=== PATIENT | female | born 1990 | race Caucasian/White ===

== ENCOUNTER 2019-03-03 11:04 | Emergency (ER) | payer OTHER ==
[~2019-03-03] VITALS: Ht 165.1 cm; Wt 86.2 kg
[~2019-03-03 11:04] MED LIST: AMOX500C25 PO
[2019-03-03 11:09] VITALS: BP 112/55
[2019-03-03] MEDS ORDERED: ACETAMINOPHEN EXTRA STRENGTH 500 MG TAB PO ONE (11:15)
[2019-03-03] MEDS ORDERED: ACETAMINOPHEN EXTRA STRENGTH 500 MG TAB ONE ×2 (11:28→11:30)
--- NOTE | 2019-03-03 11:57 | NUR ---
Pt taken to bed 3.
--- NOTE | 2019-03-03 12:15 | NUR ---
PT PRESENTS TO ED WITH C/O BODY ACHES W/ CHILLS X5 DAYS. DENIES N/V/D, OR COUGH.
--- NOTE | 2019-03-03 12:39 | NUR ---
ORAL TEMP 99.4 AT THIS TIME. PT STATES PAIN IS 7/10 AT THIS TIME.
[2019-03-03] MEDS ORDERED: KETOROLAC 60 MG/2 ML VIAL IM ONE (13:00)
[2019-03-03] MEDS ORDERED: cefTRIAXone 1,000 MG in LIDOCAINE 1% ***ER ONLY *** 2.1 ML IM ONE (13:00)
[2019-03-03 13:11] LABS: APPEARANCE,URINE SL CLOUDY (CLEAR); BILIRUBIN,URINE NEGATIVE (NEGATIVE); BLOOD, URINE TRACE-I (NEGATIVE); COLOR,URINE YELLOW (YELLOW); LEUKOCYTE ESTERASE ,URINE 2+ (NEGATIVE); NITRITE, URINE NEGATIVE (NEGATIVE); UGLUCOSE NEGATIVE (NEGATIVE)
[2019-03-03] MEDS ORDERED: cefTRIAXone 1,000 MG VIAL ONE (13:17)
[2019-03-03] MEDS ORDERED: LIDOCAINE MPF 1% - 5 mL VIAL 5 ML ONE (13:18)
[2019-03-03 13:33] LABS: BARBITURATE, URINE NEG. ng/ml (NEG <=200); BENZODIAZEPINE, URINE NEG. ng/mL (NEG <=200); CANNABINOID, URINE NEG. ng/mL (NEG <=50); COCAINE, URINE NEG. ng/mL (NEG <=300); OPIATE, URINE NEG. ng/mL (NEG <=2000); PHENCYCLIDINE SCREEN,URINE NEG. ng/mL (NEG <=25)
[2019-03-03 13:36] VITALS: BP 115/62
--- NOTE | 2019-03-03 13:36 | NUR ---
Patient discharged with v/s stable. Written and verbal after care instructions given and explained. Patient alert, oriented and verbalized understanding of instructions. Ambulatory with steady gait. All questions addressed prior to discharge. ID band removed. Patient advised to follow up with PMD. Rx of LEVAQUIN 250MG AND FIORICET [id number] given. Patient educated on indication of medication including possible reaction and side effects. Opportunity to ask questions provided and answered.
[2019-03-03 13:37] LABS: RBC,URINE NONE SEEN /HPF (0-5); WBC,URINE 60-80 /HPF (0-5)
== END 2019-03-03 13:36 | disposition home or self-care (01) ==
LOC: MED 11:04
DX: J03.90 Acute tonsillitis, unspecified (principal); N39.0 Urinary tract infection, site not specified; Z79.2 Long term (current) use of antibiotics; Z86.39 Personal history of other endocrine, nutritional and metabolic disease
CPT/HCPCS: 80305; 81001; 81025; 87086; 87186; 96372; 99283; J0696; J1885; J2001

== ENCOUNTER 2019-10-21 08:03 | Emergency (ER) | payer OTHER ==
[~2019-10-21] VITALS: Ht 165.1 cm; Wt 86.7 kg
[2019-10-21 08:13] VITALS: BP 103/41
[2019-10-21] MEDS ORDERED: NACL 0.9% 1,000 ML IV ONE (08:25)
[2019-10-21] MEDS ORDERED: KETOROLAC 30 MG/ML VIAL IVP ONE (08:25)
--- NOTE | 2019-10-21 08:30 | NUR ---
PT AMBULATED TO BATHROOM FOR URINE SAMPLE, STEADY GAIT.
--- NOTE | 2019-10-21 08:58 | NUR ---
Dr. Pat is evaluating the patient at bedside.
--- NOTE | 2019-10-21 09:10 | NUR ---
29 Y/F PRESENTS TO ED FOR LOW BACK PAIN X 2 DAY. PT REPORTS 8/10 THROBBING PAIN AND BODY ACHE. PT ALSO REPORTS FEVER SINCE YESTERDAY, ALTHOUGH DID NOT HAVE THERMOMETER TO MEASURE TEMP. PT TAKING MOTRIN AT HOME FOR FEVER AND PAIN. PT ALSO REPORTS DRY THROAT, PRODUCTIVE COUGH, AND SOB. LAST WEEK PT NOTICED BLOOD IN URINE ONLY X 1 DAY. PT DENIES BURNING OR FREQ WHILE URINATING. A&O 4, DENIES N/V/D. LUNGS CLEAR, RR EVEN AND UNLABORED. HX- SHAHNAZ RX- MOTRIN NKDA
--- NOTE | 2019-10-21 09:34 | NUR ---
NADR, PT REPORTS DECREASED PAIN 4/10
--- NOTE | 2019-10-21 09:44 | NUR ---
Patient discharged with v/s stable. Written and verbal after care instructions given and explained. Patient alert, oriented and verbalized understanding of instructions. Ambulatory with steady gait. All questions addressed prior to discharge. ID band removed. Patient advised to follow up with PMD. Rx of MOTRIN AND PREDNISONE given. Patient educated on indication of medication including possible reaction and side effects. Opportunity to ask questions provided and answered.
[2019-10-21 09:46] VITALS: BP 118/63
== END 2019-10-21 09:44 | disposition home or self-care (01) ==
LOC: MED 08:03
DX: R05 Cough (principal); R50.9 Fever, unspecified; M79.10 Myalgia, unspecified site
CPT/HCPCS: 81002; 96374; 99283; J1885; J7030

== ENCOUNTER 2019-10-27 12:29 | Emergency (ER) | payer OTHER ==
[~2019-10-27] VITALS: Ht 165.1 cm; Wt 86.6 kg
[2019-10-27 12:52] VITALS: BP 120/65
--- NOTE | 2019-10-27 12:52 | NUR ---
PT. ADMITTED TO BED 8
--- NOTE | 2019-10-27 13:05 | NUR ---
29 Y/O FEMALE C/O COUGH, HEADACHE, AND RIB PAIN PROVOKED BY COUGH X 3 DAYS. PT STATES SHE WAS SEEN 2 DAYS AGO AND DIAGNOSED WITH INFLUENZA AND UPPER RESPIRATORY INFECTION. 8/10 ACHING PAIN TO HEAD. RR EVEN AND UNLABORED, NO ACCESSORY MUSCLE USE. DENIES FEVER/N/V/D. AFEBRILE AT THIS TIME. MOIST, PRODUCTIVE COUGH NOTED. VSS MEDHX: DENIES ALLERGIES: NKA
--- NOTE | 2019-10-27 13:30 | NUR ---
REYES AT BEDSIDE EXAMINING PT
[2019-10-27] MEDS: ALBUTEROL 0.083% 2.5 MG/3 ML NEBU INH ONE (14:01)
--- NOTE | 2019-10-27 14:27 | NUR ---
PT STATES NO CHANGE IN EASE OF BREATHING. RR EVEN AND UNLABORED. STILL C/O COUGH. REYES MADE AWARE
[2019-10-27 14:34] VITALS: BP 118/72
--- NOTE | 2019-10-27 14:35 | NUR ---
Patient discharged with v/s stable. Written and verbal after care instructions given and explained. Patient alert, oriented and verbalized understanding of instructions. Ambulatory with steady gait. All questions addressed prior to discharge. ID band removed. Patient advised to follow up with PMD. Rx of MEDROL given. Patient educated on indication of medication including possible reaction and side effects. Opportunity to ask questions provided and answered.
== END 2019-10-27 13:30 | disposition home or self-care (01) ==
LOC: MED 12:29
DX: J20.9 Acute bronchitis, unspecified (principal); E06.3 Autoimmune thyroiditis; Z79.899 Other long term (current) drug therapy
CPT/HCPCS: 71045; 94640; 99283; J7613; Q0092

== ENCOUNTER 2020-03-08 01:15 | Observation (INO) | payer OTHER ==
[~2020-03-08] VITALS: Ht 165.1 cm; Wt 92.1 kg
[2020-03-08] MEDS ORDERED: ONDANSETRON 4 MG/2 ML VIAL IVP PRN (01:45)
[2020-03-08] MEDS ORDERED: PREN-543 PO (01:50)
[2020-03-08] MEDS: LACTATED RINGERS 1,000 ML IV SCH ×2 (01:52→05:39)
[2020-03-08] MEDS ORDERED: ONDANSETRON 4 MG/2 ML VIAL ONE (02:00)
[2020-03-08 02:07] LABS: BASOPHILS # (AUTO) 0.1 K/uL (0.00-0.22); BASOPHILS % (AUTO) 0.5 % (0.0-2.0); EOSINOPHILS % (AUTO) 0.4 % (0.0-4.0); HEMATOCRIT 32.9 % (36-48); HEMOGLOBIN 10.9 g/dL (12.0-16.0); LYMPHOCYTES # (AUTO) 1.6 K/uL (2.5-16.5); LYMPHOCYTES % (AUTO) 15.1 % (20.5-51.1); MEAN CORPUSCULAR HEMOGLOBIN 31 pg (27-31); MEAN CORPUSCULAR HGB CONC 33 g/dL (33-37); MEAN CORPUSCULAR VOLUME 92.6 fL (80-94); MONOCYTES # (AUTO) 0.6 K/uL (0.8-1.0); MONOCYTES % (AUTO) 5.1 % (1.7-9.3); NEUTROPHILS # (AUTO) 8.6 K/uL (1.8-7.7); NEUTROPHILS % (AUTO) 78.9 % (42.2-75.2); PLATELET COUNT (AUTO) 181 K/uL (140-450); RED BLOOD CELL COUNT(AUTO) 3.56 MIL/uL (4.20-5.40); RED CELL DISTRIBUTION WIDTH 13.8 % (11.6-13.7); WHITE BLOOD COUNT (AUTO) 10.9 K/uL (4.8-10.8)
[2020-03-08 02:08] LABS: APPEARANCE,URINE CLOUDY (CLEAR); BILIRUBIN,URINE NEGATIVE (NEGATIVE); BLOOD, URINE NEGATIVE (NEGATIVE); COLOR,URINE YELLOW (YELLOW); LEUKOCYTE ESTERASE ,URINE 1+ (NEGATIVE); NITRITE, URINE NEGATIVE (NEGATIVE); UGLUCOSE NEGATIVE (NEGATIVE)
[2020-03-08 02:14] VITALS: BP 111/55
[2020-03-08 02:19] LABS: ALBUMIN 2.6 g/dL (3.4-5.0); ANION GAP 13.9 (8-16); CARBON DIOXIDE 24.6 mmol/L (21-32); CREATININE 0.7 mg/dL (0.6-1.3); POTASSIUM 3.5 mmol/L (3.5-5.1); TOTAL BILIRUBIN 0.2 mg/dL (0.0-1.0)
[2020-03-08 02:26] LABS: RBC,URINE 0-5 /HPF (0-5); WBC,URINE 0-5 /HPF (0-5)
[2020-03-08 02:27] LABS: URINE AMORPHOUS URATE 4+ /HPF (None Seen)
[2020-03-08] MEDS ORDERED: NACL 0.9% 1,000 ML IV SCH (07:00)
[2020-03-08] MEDS ORDERED: cefTRIAXone 1,000 MG VIAL ONE (07:05)
[2020-03-08] MEDS ORDERED: ACETAMINOPHEN EXTRA STRENGTH 500 MG TAB PO PRN (07:45)
--- NOTE | 2020-03-08 07:48 | NUR ---
PATIENT HAS BEEN SCREENED AND CATEGORIZED LOW NUTRITION RISK. PATIENT WILL BE SEEN WITHIN 7 DAYS OF ADMISSION. 03/14/[address]
[2020-03-08] MEDS ORDERED: ACETAMINOPHEN EXTRA STRENGTH 500 MG TAB ONE (07:49)
== END 2020-03-08 09:00 | disposition home or self-care (01) ==
LOC: MLD 01:15
PROVIDERS: ADMIT Obstetrics & Gynecology; ATTEND Obstetrics & Gynecology
DX: O62.9 Abnormality of forces of labor, unspecified (principal); O21.2 Late vomiting of pregnancy; O26.892 Other specified pregnancy related conditions, second trimester; R51 Headache; Z91.048 Other nonmedicinal substance allergy status; Z3A.25 25 weeks gestation of pregnancy
CPT/HCPCS: 36415; 80053; 81000; 81001; 85025; 87086; 96360; 96361; G0378; J0696; J2405; J7120

== ENCOUNTER 2020-09-21 23:05 | Emergency (ER) | payer OTHER ==
[~2020-09-21] VITALS: Ht 165.1 cm; Wt 93.0 kg
[~2020-09-21 23:05] MED LIST changes: +PREN-543 PO
[2020-09-21 23:25] VITALS: BP 111/40
--- NOTE | 2020-09-21 23:29 | NUR ---
PT TAKEN TO ER BED 7 VIA W/C.
[2020-09-21] MEDS ORDERED: SUCRALFATE 1 GM TAB PO SCH (23:55)
[2020-09-21] MEDS ORDERED: DICYCLOMINE HCL LIQUID 20 MG, ALUMINUM HYD/MAG/SIMETHICONE 30 ML, LIDOCAINE VISCOUS 2% ... PO ONE ×3 (23:55)
[2020-09-21] MEDS ORDERED: FAMOTIDINE 20 MG TAB PO ONE (23:55)
[2020-09-22] MEDS ORDERED: LIDOCAINE VISCOUS 2% 20 ML UDC ONE (00:07)
[2020-09-22] MEDS ORDERED: DICYCLOMINE HCL LIQUID 10 MG/5 ML UDC ONE (00:07)
[2020-09-22] MEDS ORDERED: ALUMINUM HYD/MAG/SIMETHICONE 30 ML UDC ONE (00:07)
[2020-09-22 00:15] LABS: BASOPHILS # (AUTO) 0.1 K/uL (0.00-0.22); BASOPHILS % (AUTO) 0.7 % (0.0-2.0); EOSINOPHILS # (AUTO) 0.1 K/uL (0-0.4); EOSINOPHILS % (AUTO) 1.1 % (0.0-4.0); HEMATOCRIT 37.2 % (36-48); HEMOGLOBIN 12.4 g/dL (12.0-16.0); LYMPHOCYTES # (AUTO) 2.1 K/uL (2.5-16.5); LYMPHOCYTES % (AUTO) 22.3 % (20.5-51.1); MEAN CORPUSCULAR HEMOGLOBIN 30 pg (27-31); MEAN CORPUSCULAR HGB CONC 33 g/dL (33-37); MEAN CORPUSCULAR VOLUME 88.2 fL (80-94); MONOCYTES # (AUTO) 0.6 K/uL (0.8-1.0); MONOCYTES % (AUTO) 5.9 % (1.7-9.3); NEUTROPHILS # (AUTO) 6.6 K/uL (1.8-7.7); PLATELET COUNT (AUTO) 233 K/uL (140-450); RED BLOOD CELL COUNT(AUTO) 4.22 MIL/uL (4.20-5.40); RED CELL DISTRIBUTION WIDTH 13.8 % (11.6-13.7); WHITE BLOOD COUNT (AUTO) 9.4 K/uL (4.8-10.8)
--- NOTE | 2020-09-22 00:30 | NUR ---
PT C/O EPIGASTRIC PAIN THAT RADIATES INTO HER BACK. PAIN STARTED 1 HR AGO. AREA TENDER UPON PALPATION. PT DENIES ANY N/V/D. RATED PAIN 7/10. PT AFEBRILE, NO SOB, DENIES ANY PAIN WITH URINATION. PT PLACED IN GOWN, BED IN LOWEST POSITION AND SIDERAIL UP X 1. NKA NO HX
[2020-09-22 00:31] LABS: ALBUMIN 3.6 g/dL (3.4-5.0); CARBON DIOXIDE 26.3 mmol/L (21-32); CREATININE 1.2 mg/dL (0.6-1.3); POTASSIUM 3.3 mmol/L (3.5-5.1); TOTAL BILIRUBIN 0.5 mg/dL (0.0-1.0)
[2020-09-22 01:16] LABS: APPEARANCE,URINE CLEAR (CLEAR); BILIRUBIN,URINE NEGATIVE (NEGATIVE); BLOOD, URINE NEGATIVE (NEGATIVE); COLOR,URINE YELLOW (YELLOW); LEUKOCYTE ESTERASE ,URINE NEGATIVE (NEGATIVE); NITRITE, URINE NEGATIVE (NEGATIVE); UGLUCOSE NEGATIVE (NEGATIVE)
[2020-09-22] MEDS ORDERED: ONDANSETRON 4 MG ODT PO ONE (02:30)
[2020-09-22] MEDS ORDERED: MORPHINE SULFATE 4 MG/ML SYR IM ONE (02:30)
--- NOTE | 2020-09-22 02:38 | NUR ---
PT STILL C/O OF ABD PAIN AFTER INITIAL MEDS, 02/24. AWARE.
--- NOTE | 2020-09-22 03:00 | NUR ---
STATES PAIN IS BETTER AT THIS TIME. STILL NO N/V/D.
--- NOTE | 2020-09-22 03:42 | NUR ---
Patient discharged with v/s stable. Written and verbal after care instructions given and explained. Patient alert, oriented and verbalized understanding of instructions. Ambulatory with steady gait. All questions addressed prior to discharge. ID band removed. Patient advised to follow up with PMD. Rx of NORCO, PEPCID, AND ZOFRAN given. Patient educated on indication of medication including possible reaction and side effects. Opportunity to ask questions provided and answered.
[2020-09-22 04:07] VITALS: BP 115/62
== END 2020-09-22 03:42 | disposition home or self-care (01) ==
LOC: MED 23:05
DX: K80.20 Calculus of gallbladder without cholecystitis without obstruction (principal); K76.0 Fatty (change of) liver, not elsewhere classified; E07.9 Disorder of thyroid, unspecified; Z79.899 Other long term (current) drug therapy
CPT/HCPCS: 36415; 76705; 80053; 81003; 83690; 84702; 85025; 96372; 99284; J2270; Q0162; 99283

== ENCOUNTER 2022-04-14 01:35 | Emergency (ER) | payer OTHER ==
[~2022-04-14] VITALS: Ht 165.1 cm; Wt 83.9 kg
[2022-04-14 01:55] VITALS: BP 115/63
--- NOTE | 2022-04-14 01:58 | NUR ---
TO LOBBY A/W BED AMBULATORY
--- NOTE | 2022-04-14 02:17 | NUR ---
SEEN AND EXAMINED BY CARIN
[2022-04-14] MEDS ORDERED: cephALEXin 500 MG CAP PO ONE (02:40)
--- NOTE | 2022-04-14 02:40 | NUR ---
MEDICATED PER [facility] ORDER. TOLERATED WELL.
[2022-04-14] MEDS ORDERED: CEPH-588 PO (02:42)
[2022-04-14] MEDS ORDERED: PHEN-1877 PO (02:42)
[2022-04-14 03:25] VITALS: BP 120/78
--- NOTE | 2022-04-14 03:25 | NUR ---
Patient discharged with v/s stable. Written and verbal after care instructions given and explained. Patient alert, oriented and verbalized understanding of instructions. Ambulatory with steady gait. All questions addressed prior to discharge. ID band removed. Patient advised to follow up with PMD. Rx of KEFLEX, PYRIDIUM given. Patient educated on indication of medication including possible reaction and side effects. Opportunity to ask questions provided and answered.
== END 2022-04-14 03:25 | disposition home or self-care (01) ==
LOC: MED 01:35
DX: O23.41 Unspecified infection of urinary tract in pregnancy, first trimester (principal); N39.0 Urinary tract infection, site not specified; E03.9 Hypothyroidism, unspecified; Z3A.01 Less than 8 weeks gestation of pregnancy
CPT/HCPCS: 81002; 81025; 99284